=== PATIENT | male | born 1955 | race Asian ===

== ENCOUNTER 2021-05-31 21:09 | Emergency (ER) | payer OTHER ==
[~2021-05-31] VITALS: Ht 165.1 cm; Wt 75.8 kg
[2021-05-31 21:10] VITALS: BP 183/102; TEMP 98.5
[2021-05-31 21:42] LABS: PLATELET COUNT 188 K/uL (142-355)
[2021-05-31 21:47] LABS: POTASSIUM 3.7 mmol/L (3.6-5.2)
[2021-06-01] MEDS ORDERED: TRAZODONE HYDRO50 MG PO (09:00)
[2021-06-01] MEDS ORDERED: BUSPIRONE15 MG PO (09:00)
[2021-06-01] MEDS ORDERED: MEDROXYPROG150 MG/ML IM (09:01)
[2021-06-01] MEDS ORDERED: MEDROXYPR AC10 MG PO (09:02)
[2021-06-01] MEDS ORDERED: MEMANTINE HYDRO10 MG PO (09:03)
[2021-06-01] MEDS ORDERED: PANTOPRAZOLE SO40 M1 PO (09:03)
[2021-06-01] MEDS ORDERED: OXCARBAZEPIN300 MG PO (09:04)
[2021-06-01] MEDS ORDERED: ROWEEPRA500 MG PO (09:05)
[2021-06-01] MEDS ORDERED: CLONIDINE HYDR0.2 MG PO (09:05)
[2021-06-01] MEDS ORDERED: TAMSULOSIN HYD0.4 MG PO (09:06)
== END 2021-05-31 22:30 | disposition still patient (30) ==
LOC: ED 21:09
PROVIDERS: Emergency Medicine
DX: Z87.820 Personal history of traumatic brain injury (principal); F03.91 Unspecified dementia, unspecified severity, with behavioral disturbance; Z11.52 Encounter for screening for COVID-19; Z04.6 Encounter for general psychiatric examination, requested by authority; R41.0 Disorientation, unspecified
CPT/HCPCS: 36415; 80053; 81000; 85027; 87077; 87086; 87088; 87185; 87635; 93005; 99283; U0003